=== PATIENT | male | born 1995 | race Caucasian/White ===

== ENCOUNTER → 2018-04-08 10:32 | Outpatient (REF) | payer SELFPAY | LOC: OM 10:32 | PROVIDERS: Visit Provider Nurse Practitioner Family | DX: Z02.83 Encounter for blood-alcohol and blood-drug test (principal) ==

== ENCOUNTER 2021-02-18 06:26 | Emergency (ER) | payer MEDICAID, SELFPAY ==
[2021-02-18] VITALS (27 sets, daily range): BP systolic 124–149; BP diastolic 72–89; PULSE 76–119; RESP 4–35; O2SAT 79–100
[2021-02-18] MEDS: Lactated Ringers 1,000 ML 1000 ML IV (06:40)
[2021-02-18] MEDS: Etomidate 20 MG/10 ML VIAL IVP (06:45)
--- NOTE | 2021-02-18 06:45 | DI.RAD_ITS ---
Exam(s) XR PORTABLE CHEST AP POST LINE EXAM: XR PORTABLE CHEST AP POST LINE CLINICAL HISTORY: et tube. TECHNIQUE: 2D digital imaging was performed. COMPARISON: No exams were available for comparison FINDINGS: Portable AP supine view reveals normal heart size. The mediastinum is not widened. There are symmet rical infiltrates in the upper half of both lung kelley as well as in the right lower lung. No obvio us pleural effusions nor pneumothorax realized limitations of a supine portable view. Endotracheal tube is in satisfactory position above the edgar. An NG tube is noted coiled within th e stomach No obvious fractures. IMPRESSION: Bilateral infiltrates as described above. Endotracheal tube in satisfactory position. NG tube coiled in stomach. DATA REPOSITORY: RADIATION DOSE DELIVERED: All CT scans at this facility use at least one of these dose optimization techniques: automated exposure control; mA and/or kV adjustment per patient size (includes targeted e xams where dose is matched to clinical indication); or iterative reconstruction.
--- NOTE | 2021-02-18 06:53 | DI.CT_ITS ---
Exam(s) CT THORACIC LUMBAR SPINE REC EXAM: CT THORACIC LUMBAR SPINE REC CLINICAL HISTORY: trauma TECHNIQUE: COMPARISON: No exams were available for comparison FINDINGS: Extensive pulmonary infiltrates are noted in both lungs including upper and lower lobes in this intub ated patient. No pneumothorax evident. Osseous: There are no compression fractures nor listhesis in the thoracic spinal column. Also no fra ctures in the visualized lumbosacral spinal column.. Visualized sacroiliac joints appear unremarkabl e. Visualized sacrum appears unremarkable. IMPRESSION: No fractures evident in the thoracolumbar spinal columns. Extensive bilateral pulmonary infiltrates.
--- NOTE | 2021-02-18 06:55 | DI.CT_ITS ---
Exam(s) CT HEAD CERVICAL SPINE WO EXAM: CT HEAD CERVICAL SPINE WO CLINICAL HISTORY: trauma. TECHNIQUE: Imaging Protocol: Axial computed tomography images with coronal and sagittal reformatted images were created and reviewed COMPARISON: No exams were available for comparison FINDINGS: BRAIN: There are no skull fractures nor fluid in the visualized paranasal sinuses. There is no evidence of intracranial hemorrhage, mass effect, or shift of midline structures. There are no extra-axial fluid collections. The ventricles are not enlarged or shifted and there is no blo od within the ventricular system nor within the basal cisterns. CERVICAL SPINE: There is no evidence of fracture nor listhesis. No significant prevertebral soft tissue swelling. There is no significant facet joint malalignment. No significant osseous lesions evident. Extensive airspace disease noted in both lung apices. No pneumothorax. IMPRESSION: No acute intracranial findings on this noninfused CT scan of the brain. No evidence of cervical spine fracture, malalignment, nor acute compromise of the cervical spinal can al. Extensive infiltrates both visualized lung apices. RADIATION DOSE DELIVERED: 1,708.1mGy.cm Total DLP DATA REPOSITORY: All CT scans at this facility are submitted to the National Radiology Data Registry (NRDR) Dose Index Registry (DIR) with the [employer] (ACR). RADIATION OPTIMIZATION: All CT scans at this facility use at least one of these dose optimization te chniques: automated exposure control; mA and/or kV adjustment per patient size (includes targeted exa ms where dose is matched to clinical indication); or iterative reconstruction.
[2021-02-18 06:57] LABS: Abs Immature Grans 0.16 10^3/uL (0.0-0.06); Absolute Basophil Count 0.08 10^3/uL (0.0-0.2); Absolute Eosinophil Count 0.05 10^3/uL (0.0-0.7); Absolute Lymphocyte Count 5.66 10^3/uL (1.2-3.4); Absolute Monocyte Count 0.75 10^3/uL (0.1-0.8); Absolute Neutrophil Count 5.37 10^3/uL (1.2-6.7); Basophils % 0.7; Eosinophils % 0.4; HCT 48.4 % (40.0-50.0); HGB 16.1 g/dL (13.5-17.5); Immature Grans % 1.3; Lymphocytes % 46.9; MCH 29.7 pg (27.0-33.0); MCHC 33.3 % (32.0-36.0); MCV 89.1 fL (80-95); MPV 10.3 fL (8.0-11.0); Monocytes % 6.2; Neutrophils % 44.5; Nucleated RBC 0 %; Platelet Count 242 10^3/uL (130-400); RBC 5.43 10^6/uL (4.36-5.78); RDW 12.3 % (11.8-14.1); RDW-SD 40.5 fL; WBC 12.07 10^3/uL (4.4-10.8)
[2021-02-18 07:04] LABS: BE -8 mmol/L (-2-3); HCO3 20 mmol/L (22-26); pCO2 56 mmHg (35-45); pO2 46 mmHg (80-105); sO2 75 % (95-98); tCO2 19 mmol/L (23-27)
[2021-02-18 07:07] LABS: ALT 44 U/L (16-63); AST 23 U/L (15-37); Albumin 3.7 g/dL (3.4-5.0); Alkaline Phosphatase 64 U/L (46-116); Anion Gap 22.1 mmol/L (3-11); BUN 15 mg/dL (7-18); Bilirubin, Total 0.2 mg/dL (0.2-1.0); CO2 15.9 mmol/L (21.0-32.0); CREATININE 1.6 mg/dL (0.70-1.30); Calcium 8.1 mg/dL (8.5-10.1); Chloride 101 mmol/L (98-107); Estimated GFR 50.03 (mL/min/1.73m2); Glucose 293 mg/dL (74-106); Magnesium 2.4 mg/dL (1.8-2.4); Potassium 3.4 mmol/L (3.5-5.1); Sodium 139 mmol/L (136-145); Total Protein 7.6 g/dL (6.4-8.2)
[2021-02-18 07:07] LABS: Site Left Radial; pH 7.17 (7.35-7.45)
[2021-02-18 07:08] LABS: FIO2 100 %
[2021-02-18 07:08] LABS: Troponin I < 0.05 ng/mL (<0.06)
[2021-02-18 07:12] LABS: Bilirubin Negative (Negative); Blood Small (Negative); Clarity Clear (Clear); Glucose 500 mg/dL (Negative); Ketones Negative (Negative); Leukocyte Esterase Negative (Negative); Nitrite Negative (Negative); Specific Gravity >= 1.030 (1.005-1.025); Urobilinogen 0.2 EU/dL (Up TO 0.2)
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
[2021-02-18 07:15] LABS: Diff Comment Diff Reviewed; RBC Morphology Normal
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
[2021-02-18] MEDS: Omnipaque 350 MG/ML 100 ML BTL IJ (07:21)
[2021-02-18 07:22] LABS: *AMPHETAMINES SCREEN URINE Positive (Negative); *BARBITURATES SCREEN URINE Negative (Negative); *BENZODIAZEPINES SCREEN URINE Negative (Negative); Cannabinoids THC Negative (Negative); Cocaine Screen,Urine Positive (Negative); METHADONE URINE SCREEN Negative (Negative); OPIATES URINE SCREEN Negative (Negative); Tricyclic Antidepressants Negative (Negative)
[2021-02-18] MEDS: Normal Saline - Diluent 50 ML VIAL IV (07:22)
[2021-02-18 07:24] LABS: Epithelial Cells Rare HPF (Negative); Other Cells Moderate Spermatozoa (Negative); WBC 0-2 HPF (0-5)
[2021-02-18 07:25] LABS: Bacteria Negative HPF (Negative); C & S Indicated? No; Casts Negative LPF (Negative); Crystals Negative HPF (Negative); Mucus Moderate (Negative)
[2021-02-18] MEDS: Lactated Ringers 2,000 ML 1000 ML IV (07:29)
[2021-02-18] MEDS: INSULIN REGULAR IN 0.9 % NACL 100 UNIT/100 ML BAG IV (07:34)
--- NOTE | 2021-02-18 07:38 | DI.VRAD_ITS ---
Addendum created by Ajit Grider MD on 02/18/2021 10:06:16 AM EDT: Additional information states the patient age is 36 years. Initial report created on 02/18/2021 7:38:19 AM EDT: PROCEDURE INFORMATION: Preliminary report Exam: CT Head Without Contrast Exam date and time: 02/18/2021 7:09 AM Age: 31 years old Clinical indication: Other: Trauma TECHNIQUE: Imaging protocol: Computed tomography of the head without contrast. Radiation optimization: All CT scans at this facility use at least one of these dose optimization techniques: automated exposure control; mA and/or kV adjustment per patient size (includes targeted exams where dose is matched to clinical indication); or iterative reconstruction. COMPARISON: No relevant prior studies available. FINDINGS: Tubes, catheters and devices: Endotracheal and nasogastric tubes. Brain: No acute post-traumatic brain injury. Symmetric caliber of the cortical sulci. Normal jones-white matter differentiation. Cerebral ventricles: Normal configuration of the ventricles. Paranasal sinuses: Trace sphenoid sinus fluid and 8 mm polypoid lesion in the left maxillary sinus. Mastoid air cells: No mastoid effusion. Bones/joints: No acute calvarial injury. Soft tissues: Left periorbital soft tissue swelling. IMPRESSION: No acute post-traumatic brain injury. Left periorbital soft tissue swelling. PROCEDURE INFORMATION: Preliminary report Exam: CT Cervical Spine Without Contrast Exam date and time: 02/18/2021 7:09 AM Age: 31 years old Clinical indication: Other: Trauma TECHNIQUE: Imaging protocol: Computed tomography images of the cervical spine without contrast. COMPARISON: No relevant prior studies available. FINDINGS: Tubes, catheters and devices: Endotracheal and nasogastric tubes. Bones/joints: No acute bony injury or malalignment in the cervical spine. Discs/Spinal canal/Neural foramina: No acute findings. Lungs: Prominent biapical airspace disease. Soft tissues: Unremarkable. IMPRESSION: 1. No acute bony injury or malalignment in the cervical spine. 2. Prominent biapical airspace disease. Dictated and Authenticated by: Ajit Grider MD. Ordering:JOSELIN Howard MD
[2021-02-18] MEDS: PROPOFOL 1,000 MG/100 ML BTL 3.381 MG IVPB (07:43)
[2021-02-18 07:47] LABS: ETHANOL BLOOD < 3.0 mg/dL (<3)
--- NOTE | 2021-02-18 07:47 | DI.VRAD_ITS ---
Addendum created by Jorge Ryder MD on 02/18/2021 9:54:52 AM EDT: The patient's age has been corrected to 36 years old. Initial report created on 02/18/2021 7:46:58 AM EDT: PROCEDURE INFORMATION: Exam: CT Chest With Contrast; Diagnostic Exam date and time: 02/18/2021 7:14 AM Age: 31 years old Clinical indication: Other: Trauma TECHNIQUE: Imaging protocol: Diagnostic computed tomography of the chest with contrast. Radiation optimization: All CT scans at this facility use at least one of these dose optimization techniques: automated exposure control; mA and/or kV adjustment per patient size (includes targeted exams where dose is matched to clinical indication); or iterative reconstruction. Contrast material: OMNIPAQUE 350; Contrast volume: 100 ml; Contrast route: INTRAVENOUS (IV); COMPARISON: CR XR PORTABLE CHEST AP POST LINE 02/18/2021 7:00 AM FINDINGS: Tubes, catheters and devices: An endotracheal tube is present in satisfactory position. Nasogastric tube extends down to the stomach. Lungs: There are prominent extensive bilateral pulmonary infiltrates predominantly in the upper and lower lobes. There is prominent consolidation of the right apex. Possible etiologies for these extensive infiltrates include pneumonia, aspiration pneumonia and pulmonary contusions. Pleural spaces: Unremarkable. No pneumothorax. No pleural effusion. Heart: Unremarkable. No cardiomegaly. No pericardial effusion. Aorta: Unremarkable. No aortic aneurysm. Lymph nodes: Unremarkable. No enlarged lymph nodes. Bones/joints: Unremarkable. No acute fracture. Soft tissues: Unremarkable. IMPRESSION: 1. Satisfactory position of the endotracheal tube and nasogastric tube. 2. Prominent extensive bilateral pulmonary infiltrates. Possible etiologies include aspiration pneumonia and pulmonary contusions. PROCEDURE INFORMATION: Exam: CT Abdomen And Pelvis With Contrast Exam date and time: 02/18/2021 7:14 AM Age: 31 years old Clinical indication: Other: Trauma TECHNIQUE: Imaging protocol: Computed tomography of the abdomen and pelvis with contrast. Contrast material: OMNIPAQUE 350; Contrast volume: 100 ml; Contrast route: INTRAVENOUS (IV); COMPARISON: CR XR PORTABLE CHEST AP POST LINE 02/18/2021 7:00 AM FINDINGS: Tubes, catheters and devices: Nasogastric tube is present in the stomach. Liver: There is decreased density of the liver consistent with fatty liver. No liver masses. Gallbladder and bile ducts: Normal. No calcified stones. No ductal dilation. Pancreas: Normal. No ductal dilation. Spleen: Normal. No splenomegaly. Adrenal glands: Normal. No mass. Kidneys and ureters: Normal. No hydronephrosis. Stomach and bowel: Unremarkable. No obstruction. No mucosal thickening. Appendix: No evidence of appendicitis. Intraperitoneal space: Unremarkable. No free air. No significant fluid collection. Vasculature: Unremarkable. No abdominal aortic aneurysm. Lymph nodes: Unremarkable. No enlarged lymph nodes. Urinary bladder: Craig catheter is present in the urinary bladder. Reproductive: Unremarkable as visualized. Bones/joints: Unremarkable. No acute fracture. Soft tissues: Unremarkable. IMPRESSION: No acute abnormalities are seen in the abdomen and pelvis. Dictated and Authenticated by: Jorge Ryder MD. Ordering:JOSELIN Howard MD
[2021-02-18] MEDS: Propofol 200 MG/20 ML VIAL 40 MG IVP ×3 (07:50→08:23)
--- NOTE | 2021-02-18 07:51 | DI.VRAD_ITS ---
Addendum created by Jorge Ryder MD on 02/18/2021 9:55:17 AM EDT: The patient's age has been corrected to 36 years old. Initial report created on 02/18/2021 7:51:13 AM EDT: PROCEDURE INFORMATION: Exam: CT Thoracic Spine Without Contrast Exam date and time: 02/18/2021 7:06 AM Age: 31 years old Clinical indication: Other: Trauma TECHNIQUE: Imaging protocol: Computed tomography images of the thoracic spine without contrast. Radiation optimization: All CT scans at this facility use at least one of these dose optimization techniques: automated exposure control; mA and/or kV adjustment per patient size (includes targeted exams where dose is matched to clinical indication); or iterative reconstruction. COMPARISON: No relevant prior studies available. FINDINGS: Vertebrae: No acute fracture. Normal alignment. Discs/Spinal canal/Neural foramina: No significant disc protrusion. No severe spinal canal stenosis. No significant neural foraminal narrowing. Soft tissues: There are prominent extensive bilateral pulmonary infiltrates. IMPRESSION: Unremarkable CT Spine. PROCEDURE INFORMATION: Exam: CT Lumbar Spine Without Contrast Exam date and time: 02/18/2021 7:06 AM Age: 31 years old Clinical indication: Other: Trauma TECHNIQUE: Imaging protocol: Computed tomography images of the lumbar spine without contrast. Radiation optimization: All CT scans at this facility use at least one of these dose optimization techniques: automated exposure control; mA and/or kV adjustment per patient size (includes targeted exams where dose is matched to clinical indication); or iterative reconstruction. COMPARISON: No relevant prior studies available. FINDINGS: Vertebrae: No acute fracture. Normal alignment. Discs/Spinal canal/Neural foramina: No significant disc protrusion. No severe spinal canal stenosis. No significant neural foraminal narrowing. Soft tissues: Unremarkable. IMPRESSION: No acute findings. Dictated and Authenticated by: Jorge Ryder MD. Ordering:JOSELIN Howard MD
[2021-02-18] MEDS: Albuterol/Ipratropium 3 ML UPD VIAL UPD (08:11)
[2021-02-18] MEDS: fentaNYL 1,000 MCG in Normal Saline 80 ML 11.27 MCG IV (08:27)
[2021-02-18 08:33] LABS: BE (Venous) -3 mmol/L (-2-3); HCO3 (Venous) 24 mmol/L (23-28); O2 Sat (Venous) 74 %; TCO2 (Venous) 22 mmol/L (24-29); pCO2 (Venous) 56 mmHg (41-51); pH (Venous) 7.24 (7.31-7.41); pO2 (Venous) 43 mmHg
--- NOTE | 2021-02-18 08:58 | NUR.NOTE ---
Nursing Note: 02/18/21 This caption writer took over recording at 0641. Staff in room included Iza from EMS (luiz), Isaias EMT/ licensed appraiser, Dr. Ruddy YO, Марина BUCIO, Maria De Jesus GUERRIER and Angeline Trejo RN.
--- NOTE | 2021-02-18 09:02 | DI.VRAD_ITS ---
Addendum created by Ajit Grider MD on 02/18/2021 10:06:40 AM EDT: Additional information states the patient has age is 36 years. Initial report created on 02/18/2021 9:02:17 AM EDT: PROCEDURE INFORMATION: Exam: XR Chest Exam date and time: 02/18/2021 6:54 AM Age: 29 years old Clinical indication: Device placement; Ng tube; Patient HX: Trauma TECHNIQUE: Imaging protocol: XR of the chest. Views: 1 view. COMPARISON: No relevant prior studies available. FINDINGS: Tubes, catheters and devices: Endotracheal and feeding tubes. The endotracheal tube terminates 4.2 cm above the edgar. Lungs: Bilateral interstitial/airspace disease. Pleural spaces: No significant pleural effusion. Heart/Mediastinum: Normal configuration of the heart. Bones/joints: Unremarkable. IMPRESSION: 1. Endotracheal and feeding tubes. The endotracheal tube terminates 4.2 cm above the edgar. 2. Bilateral interstitial/airspace disease. Dictated and Authenticated by: Ajit Grider MD. Ordering:JOSELIN Howard MD
--- NOTE | 2021-02-20 13:24 | NUR.NOTE ---
Nursing Note: Miryam Wisdom, mother called asking about the patient' pants and boots. She would like to pick them up. I looked and told her that we do not have those belongings here in the ED. That he arrived with no clothing on, possibly [facility] has it. Nanci Hayes
== END 2021-02-18 08:58 | disposition short-term general hospital (02) ==
PROVIDERS: Emergency Provider Emergency Medicine
DX: S06.899A Other specified intracranial injury with loss of consciousness of unspecified duration, initial encounter (principal); R40.2432 Glasgow coma scale score 3-8, at arrival to emergency department; V49.9XXA Car occupant (driver) (passenger) injured in unspecified traffic accident, initial encounter
CPT/HCPCS: 31500; 36415; 36416; 51702; 71045; 74177; 80053; 80307; 82805; 82962; 94640; 96361; 96365; 96366; 96367; 96368; 96375; 99291; 36600; 70450; 71260; 72125; 80320; 81003; 81015; 83735; 84484; 85025; J2704; J3010; J3490; J7620

== ENCOUNTER 2021-04-02 11:11 | Emergency (ER) | payer MEDICAID, SELFPAY ==
--- NOTE | 2021-04-02 11:00 | RT.EKG_ITS ---
APPROVED REPORT Exam: Resting ECG Reason for Exam: overdose Patient Location: E HR:107 bpm ECG Measurements Heart Rate 107 AXIS IL 163 P 59 QRSd 81 QRS 15 QT 340 T 15 QTc 453 Conclusion Sinus tachycardia...rate> 99
--- NOTE | 2021-04-02 11:00 | DI.RAD_ITS ---
Exam(s) XR PORTABLE CHEST AP EXAM: XR PORTABLE CHEST AP CLINICAL HISTORY: overdose/unresponsive. TECHNIQUE: 2D digital imaging was performed. COMPARISON: No exams were available for comparison FINDINGS: LUNGS: Clear. No pleural abnormality seen. HEART: Normal. MEDIASTINUM: Normal. OTHER FINDINGS: None. IMPRESSION: No acute pulmonary findings. DATA REPOSITORY: RADIATION DOSE DELIVERED: Total DLP
--- NOTE | 2021-04-02 11:08 | W.ED.GENAD ---
Discharge Plan Disposition Patient Disposition: HOME Condition: Improving Discharge Details Clinical Impression: Depression, Heroin overdose Primary Care Provider: Cordelia,Local ED Provider: Tyler Leiva Home Meds and New Rx's Prescriptions: No Action No Known Home Meds RF: 0 Discharge Instructions Instructions: Depression (ED) Additional Instructions: He was seen in the emergency department by the [facility] crisis screener. You have an appointment for follow-up in the office on Saturday. You have agreed to an outpatient plan of safety. Return at any time for change in mood. Avoid any further use of illicit substances. Medical Decision Making 26-year-old male brought by EMS after call out for unresponsive male. Patient admitted to smoking 1 bag of heroin. He was revived after he received Narcan x2 intranasal in the field by EMS with improved level of consciousness. Patient states he was not trying to hurt himself. He has no complaints at this time. He arrives to the ER alert and interactive. IV access established, patient given a fluid bolus, screening chest x-ray obtained and he is observed. Diagnostics: CBC and chemistries unremarkable. Ordered alcohol negative. Patient states that he has been depressed, leading to his recent drug use, but repeatedly denies to me attempts at self-harm. Nonetheless, given concern for depression with possible attempted overdose, he was evaluated by mental health. He states he is depressed, but not suicidal. He has an appointment with [facility] on Saturday. HPI General Mode of arrival: EMS. Date/Time Provider Initiated Documentation: 04/02/21 11:15. Limitations to Documentation: no limitations. Information obtained by: patient and EMS. History of Present Illness 26 year old M presents to the emergency department with the chief complaint of Heroin overdose, status post Narcan x2 in the field, Patient started experiencing this minute(s) and it has been other (Improving). Patient notes denies headaches, nausea/vomiting and shortness of breath. Patient did receive the following treatments prior to arrival, other (Narcan x2 by EMS) Related Data Home Medications Medication Instructions Recorded Confirmed Unknown [No Known Home Meds] 04/02/21 04/02/21 Allergies Allergy/AdvReac Type Severity Reaction Status Date / Time No Known Allergies Allergy Unverified 04/02/21 11:18 General LEWIS: 1 Review of Systems Narrative: Denies recent illness. [facility], [facility] Medical History Medical history unknown Surgical History (Updated 03/07/21 @ 11:15 by Ksenia Zhang) Surgical history unknown Social History Smoking/Tobacco Use Status: Current every day Tobacco Type: cigarettes Smoking risk assessment performed?: Yes Alcohol Intake: never Drug use: Occasionally Substance use type: marijuana, heroin and unknown Do you feel safe at home: Yes Do you feel safe in your relationship?: Yes Additional Social history: unknown Exam Narrative Exam Narrative: GEN: awake, alert, oriented 3. Pleasant, well groomed, interactive. Slightly diaphoretic HEAD: Normocephalic, atraumatic ENT: Mucous membranes moist, oropharynx unremarkable, External ear exam unremarkable EYES: PERRL, EOMI NECK: Full ROM, no NICOLASA, no menigismus CHEST/RESP: Nontender, clear to auscultation bilateral, no wheeze/rhonchi/rales CARDIOVASCULAR: RRR, no murmur, rub mary beth. 2+ Rad pulse bilateral ABDOMEN: Soft, nontender, no mass. +Bowel sounds EXT: Full ROM, no edema, no rash Neuro: Grossly normal neurologic exam, conversant, interactive. Psych: Speech fluent, thoughts congruent, affect normal
[2021-04-02 11:15] VITALS: PULSE 109; RESP 15; TEMP 36.3; O2SAT 95
[2021-04-02 11:18] VITALS: RESP 18
[2021-04-02 11:36] LABS: Abs Immature Grans 0.02 10^3/uL (0.0-0.06); Absolute Basophil Count 0.04 10^3/uL (0.0-0.2); Absolute Eosinophil Count 0.03 10^3/uL (0.0-0.7); Absolute Lymphocyte Count 1.39 10^3/uL (1.2-3.4); Absolute Monocyte Count 0.33 10^3/uL (0.1-0.8); Absolute Neutrophil Count 6.56 10^3/uL (1.2-6.7); Basophils % 0.5; Eosinophils % 0.4; HCT 46.9 % (40.0-50.0); HGB 16.1 g/dL (13.5-17.5); Immature Grans % 0.2; Lymphocytes % 16.6; MCH 29.7 pg (27.0-33.0); MCHC 34.3 % (32.0-36.0); MCV 86.5 fL (80-95); MPV 9.9 fL (8.0-11.0); Monocytes % 3.9; Neutrophils % 78.4; Nucleated RBC 0 %; Platelet Count 227 10^3/uL (130-400); RBC 5.42 10^6/uL (4.36-5.78); RDW 12.4 % (11.8-14.1); RDW-SD 39.5 fL; WBC 8.37 10^3/uL (4.4-10.8)
[2021-04-02] MEDS: Normal Saline 1,000 ML 150 ML IV (11:40)
[2021-04-02 11:51] LABS: ALT 55 U/L (16-63); AST 24 U/L (15-37); Albumin 3.8 g/dL (3.4-5.0); Alkaline Phosphatase 64 U/L (46-116); Anion Gap 10.8 mmol/L (3-11); BUN 9 mg/dL (7-18); Bilirubin, Total 0.4 mg/dL (0.2-1.0); CO2 25.2 mmol/L (21.0-32.0); CREATININE 1.1 mg/dL (0.70-1.30); Calcium 8.9 mg/dL (8.5-10.1); Chloride 104 mmol/L (98-107); Glucose 162 mg/dL (74-106); Sodium 140 mmol/L (136-145)
[2021-04-02 11:52] LABS: ETHANOL BLOOD < 3.0 mg/dL (<3)
--- NOTE | 2021-04-02 13:26 | DI.VRAD_ITS ---
PROCEDURE INFORMATION: Exam: XR Chest Exam date and time: 04/02/2021 11:09 AM Age: 26 years old Clinical indication: Other: Overdose/unresponsive TECHNIQUE: Imaging protocol: XR of the chest. Views: 1 view. COMPARISON: No relevant prior studies available. FINDINGS: Lungs: Unremarkable. No consolidation. Pleural spaces: Unremarkable. No pleural effusion. No pneumothorax. Heart/Mediastinum: Unremarkable. No cardiomegaly. Bones/joints: Unremarkable. IMPRESSION: No significant cardiopulmonary abnormality. Dictated and Authenticated by: Jorge Ryder MD. Ordering:JAMAR Scott MD
[2021-04-02 15:29] LABS: Bilirubin Negative (Negative); Blood Negative (Negative); Clarity Cloudy (Clear); Glucose Negative (Negative); Ketones Negative (Negative); Leukocyte Esterase Negative (Negative); Nitrite Negative (Negative); Specific Gravity 1.025 (1.005-1.025); Urobilinogen 0.2 EU/dL (Up TO 0.2)
[2021-04-02 15:37] LABS: Epithelial Cells Negative HPF (Negative); RBC Negative HPF (0-2)
[2021-04-02 15:38] LABS: C & S Indicated? No; Casts Negative LPF (Negative); Crystals Many Amorphous HPF (Negative); Mucus Trace (Negative)
[2021-04-02 15:51] LABS: *AMPHETAMINES SCREEN URINE Positive (Negative); *BARBITURATES SCREEN URINE Negative (Negative); *BENZODIAZEPINES SCREEN URINE Negative (Negative); Cannabinoids THC Positive (Negative); Cocaine Screen,Urine Positive (Negative); METHADONE URINE SCREEN Negative (Negative); OPIATES URINE SCREEN Positive (Negative)
[2021-04-02 15:52] LABS: Tricyclic Antidepressants Negative (Negative)
--- NOTE | 2021-04-02 16:08 | PDOC.MHCN ---
Date of service: 04/02/21 Time of Service: 16:08 Mental Health Crisis Note Presenting Issue How did you arrive at the ED and why did you come: Patient was brought in by ambulance. a passerby had seen him slumped over in his truck and called. He had overdosed on heroin and they gave him narcan and brought him in. Precipitating Factors This client states he has overdosed before and is not suicidal. He is depressed because of his current situation on parole and his ex took their kids to [place] and he can't see them. He lives in a assisted and spends most days with his grandmother. Disposition BEHAVIOR: calm anc cooperative EYE CONTACT: good eye contact MOOD: his mood is depressed AFFECT: his affect is flat APPETITE: eating okay SLEEP(trouble falling/staying asleep: sometimes sleeps too much sometimes has disturbed sleep. Plan The client is set for an appointment at [facility] on SaturdayApril 05. He has been prelimnarily admitted and he will be able to go home with his grandmother today. He also has a job interview on Saturday and is on parole and will follow up with his policy officer. Vasiliy Wisdom. Signature Clinician's Name/Title: Alida Murillo, [facility] Emergency Clinician
== END 2021-04-02 16:03 | disposition home or self-care (01) ==
PROVIDERS: Emergency Provider Emergency Medicine
DX: T40.1X1A Poisoning by heroin, accidental (unintentional), initial encounter (principal); F32.9 Major depressive disorder, single episode, unspecified
CPT/HCPCS: 36415; 80053; 80307; 93005; 96360; 96361; 99284; 71045; 80320; 81003; 81015; 83735; 85025; 93010